=== PATIENT | male | born 1945 | race Caucasian/White ===

== ENCOUNTER → 2020-11-11 | Outpatient (CLI) | payer MEDICARE, OTHER | END | disposition home or self-care (01) | LOC: RADXRMAIN 07:26 | PROVIDERS: ATTEND Family Medicine | DX: Z53.9 Procedure and treatment not carried out, unspecified reason (principal) ==

== ENCOUNTER → 2020-11-11 | Outpatient (CLI) | payer MEDICARE, OTHER ==
--- NOTE | 2020-11-11 07:48 | XR ---
EXAMINATION TYPE: XR chest 2V DATE OF EXAM: 11/11/2020 COMPARISON: NONE HISTORY: Shortness of breath TECHNIQUE: Frontal and lateral views of the chest are obtained. FINDINGS: Underlying emphysematous changes though present on lateral view. There is no focal air spa ce opacity, pleural effusion, or pneumothorax seen. The cardiac silhouette size is within normal [place] its. Underlying scoliotic curvature. IMPRESSION: Chronic changes without acute pulmonary process.
--- NOTE | 2020-11-11 08:39 | US ---
EXAMINATION TYPE: US abdomen complete DATE OF EXAM: 11/11/2020 COMPARISON: NONE CLINICAL HISTORY: 75-year-old male E80.7 DISORDER OF BILIRUBIN. Abnormal labs, no symptoms TECHNIQUE: Multiple sonographic images of the abdomen are obtained. FINDINGS: EXAM MEASUREMENTS: Liver Length: 18.0 cm Gallbladder Wall: 0.2 cm CBD: 5.5 mm Spleen: 11.5 cm Right Kidney: 10.0 x 4.7 x 3.6 cm Left Kidney: 10.5 x 4.5 x 5.2 cm Pancreas: obscured by bowel gas Liver: Mildly enlarged at 18.0 cm. No focal lesion seen. Gallbladder: wnl Evidence for sonographic Fernandez's sign: no CBD: wnl Spleen: wnl Right Kidney: wnl Left Kidney: wnl Upper IVC: wnl Abd Aorta: mid and distal level obscured by bowel gas IMPRESSION: Mild hepatomegaly at 18.0 cm. No gallstones or biliary ductal dilatation. Suboptimal visualization of the pancreas.
== END | disposition home or self-care (01) ==
LOC: RADUSWWP 07:01
PROVIDERS: ATTEND Family Medicine
DX: R06.02 Shortness of breath (principal); E80.7 Disorder of bilirubin metabolism, unspecified
CPT/HCPCS: 71046; 76700

== ENCOUNTER → 2022-09-17 | Outpatient (CLI) | payer MEDICARE, OTHER ==
--- NOTE | 2022-09-17 14:33 | US ---
EXAMINATION TYPE: US groin RT DATE OF EXAM: 09/17/2022 COMPARISON: NONE CLINICAL INDICATION: Male, 77 years old with history of K40.90 INGUINAL HERNIA; Right testicular and groin pain Technique: Grayscale ultrasound imaging and area of patient's pain. FINDINGS: Right groin at patient's area of pain: appears appears within normal limits. No evidence for organizi ng fluid collection or mass. IMPRESSION: No organizing fluid collection or mass. If there remains concern consider CT hernia johnna col.
--- NOTE | 2022-09-17 14:37 | US ---
EXAMINATION TYPE: US scrotum with doppler. Grayscale and color Doppler Duplex imaging performed of lesvia johnson scrotum. DATE OF EXAM: 09/17/2022 COMPARISON: NONE CLINICAL INDICATION: Male, 77 years old with history of K40.90 INGUINAL HERNIA; Right testicular and groin pain EXAM MEASUREMENTS: TESTICLES: Right Testicle: 3.8 x 1.7 x 2.3 cm, heterogeneous few scattered microliths are present. Left Testicle: 3.4 x 1.8 x 2.5 cm, heterogeneous few scattered microliths are present. EPIDIDYMIS HEAD: Right Epididymis: 1.2 cm Left Epididymis: 1.1 cm Doppler performed to assess for testicular vascularity; good bilateral arterial color flow and wavefo ari are seen. Unable to obtain venous flow within bilateral testicles. Presence of hydroceles: right - 1.4cm, left - 1.9cm Presence of varicoceles: no IMPRESSION: 1. Heterogenous appearance to the testis relate for a component of epididymoorchitis. 2. Appropriate arterial flow to the bilateral testicles. Venous flow is suboptimal. 3. Trace bilateral hydroceles.
== END | disposition home or self-care (01) ==
LOC: RADUSWWP 13:32
PROVIDERS: ATTEND Family Medicine
DX: K40.90 Unilateral inguinal hernia, without obstruction or gangrene, not specified as recurrent (principal); N43.3 Hydrocele, unspecified; N45.3 Epididymo-orchitis
CPT/HCPCS: 76870; 93975

== ENCOUNTER 2023-02-01 15:29 | Inpatient (IN) | payer MEDICARE, OTHER ==
--- NOTE | 2023-02-01 15:48 | ED ---
Fall HPI - General Chief Complaint: Fall Stated Complaint: Fall Time Seen by Provider: 02/01/23 15:33 Source: patient, EMS Mode of arrival: EMS - History of Present Illness Initial Comments: Patient is 77-year-old man with history of Parkinson's disease who states that just prior to arrival he fell. The patient was on his porch, reaching to get a chair. He states that he lost his balance and fell landing on his left hip. He states that there is sharp, moderately severe pain and that he is not able to put any weight on his left leg now. Ambulance was called and he was brought here. He denies other injuries. Patient declined analgesia at initial history and physical MD Complaint: fall -: minutes(s) Fall From: standing When Fall Occurred: just prior to arrival Place Fall Occurred: home Loss of Consciousness: none Prolonged Down Time?: no Symptoms Prior to Fall: none Location - Extremities: Right: Thigh Severity: severe Quality: sharp Context: tripped/slipped Associated Symptoms: denies - Related Data Home Medications Medication Instructions Recorded Confirmed Aspirin EC [Ecotrin Low Dose] 81 mg PO HS 02/01/23 02/01/23 Carbidopa-Levodopa 25-100 mg 3 tab PO QID@07,11,15,19 02/01/23 02/01/23 [Sinemet 25-100 mg] Cholecalciferol [Vitamin D3 (125 125 mcg PO DAILY 02/01/23 02/01/23 Mcg = 5000 Iu)] Cyanocobalamin (Vitamin B-12) 1,000 mcg PO Q48H 02/01/23 02/01/23 [Vitamin B-12] Escitalopram Oxalate [Lexapro] 10 mg PO HS 02/01/23 02/01/23 Fluticasone/Umeclidin/Vilanter 1 puff INHALATION RT-DAILY 02/01/23 02/01/23 [Trelegy Ellipta 100-62.5-25] Melatonin [Melatonin ER] 10 mg PO HS 02/01/23 02/01/23 Tamsulosin [Flomax] 0.4 mg PO HS 02/01/23 02/01/23 buPROPion XL [Wellbutrin XL] 150 mg PO DAILY 02/01/23 02/01/23 Previous Rx's Medication Instructions Recorded Rivaroxaban [Xarelto] 10 mg PO DAILY #30 tab 02/02/23 Sennosides [Senokot] 2 tab PO DAILY PRN #60 tablet 02/02/23 HYDROcodone/APAP 7.5-325MG [[place] 1 - 2 tab PO Q6H PRN #32 tab 02/03/23 7.5-325] Gabapentin [Neurontin] 600 mg PO HS #8 cap 02/04/23 Allergies Allergy/AdvReac Type Severity Reaction Status Date / Time No Known Allergies Allergy Verified 02/01/23 18:14 Review of Systems ROS Statement: Those systems with pertinent positive or pertinent negative responses have been documented in the HPI. ROS Other: All systems not noted in ROS Statement are negative. Constitutional: Denies: fever, chills, weakness Eyes: Denies: vision change Respiratory: Denies: cough, dyspnea Cardiovascular: Denies: chest pain, palpitations, edema, syncope Gastrointestinal: Denies: abdominal pain, nausea, vomiting Genitourinary: Denies: dysuria, frequency Musculoskeletal: Reports: as per HPI, arthralgia. Denies: back pain Skin: Denies: rash Neurological: Denies: headache, weakness, numbness Past Medical History Smoking Status: Never smoker Past Alcohol Use History: None Reported Past Drug Use History: None Reported General Exam Limitations: no limitations, physical limitation General appearance: alert, in no apparent distress Head exam: Present: atraumatic, normocephalic Eye exam: Present: normal appearance. Absent: scleral icterus, conjunctival injection ENT exam: Present: normal oropharynx Neck exam: Present: normal inspection, full ROM Respiratory exam: Present: normal lung sounds bilaterally. Absent: respiratory distress, wheezes, rales, rhonchi, stridor, chest wall tenderness Cardiovascular Exam: Present: regular rate, normal rhythm, normal heart sounds. Absent: systolic murmur, diastolic murmur, rubs, gallop GI/Abdominal exam: Present: soft. Absent: distended, tenderness, guarding, re bound, rigid, mass Extremities exam: Present: normal inspection, tenderness, normal capillary refill, other (Tender left hip and decreased range of motion). Absent: full ROM, pedal edema, calf tenderness Back exam: Present: normal inspection. Absent: CVA tenderness (R), CVA tenderness (L) Neurological exam: Present: alert Skin exam: Present: warm, dry, intact, normal color. Absent: rash Course Vital Signs 02/01/23 02/01/23 02/01/23 15:34 15:58 18:58 Temperature 99 F Pulse Rate 86 74 Respiratory 18 18 18 Rate Blood Pressure 157/79 157/82 143/80 O2 Sat by Pulse 99 97 93 L Oximetry 02/01/23 19:45 Temperature 98.1 F Pulse Rate 75 Respiratory 18 Rate Blood Pressure 150/87 O2 Sat by Pulse 98 Oximetry Medical Decision Making - Medical Decision Making Patient is 77-year-old man having ground-level fall with left hip pain, found to have left femoral neck fracture. I patient states she has previously seen Dr. Tripathi, and requested see if he was available. I discussed case with the physician glass ribbon machine operator assistant who states that they would be able to perform surgery tomorrow. They request patient nothing by mouth after midnight. Discussed with the patient and family at bedside. The patient had pelvis and hip x-ray which in my interpretation shows acute femoral neck fracture The patient had chest x-ray which I interpreted as negative for acute bony injury, pneumothorax, infiltrate Was pt. sent in by a medical professional or institution (, PA, YOUTH CARE PROFESSIONAL, urgent care, hospital, or [facility]...) When possible be specific @ -[No] Did you speak to anyone other than the patient for history (EMS, parent, family, police, friend...)? What history was obtained from this source @ -[No] Did you review nursing and triage notes (agree or disagree)? Why? @ -[I reviewed and agree with nursing and triage notes] Were old charts reviewed (outside hosp., previous admission, EMS record, old EKG, old radiological studies, urgent care reports/EKG's, [facility] records)? Report findings @ -[No old charts were reviewed] Differential Diagnosis (chest pain, altered mental status, abdominal pain women, abdominal pain men, vaginal bleeding, weakness, fever, dyspnea, syncope, he adache, dizziness, GI bleed, back pain, seizure, CVA, palpatations, mental health, musculoskeletal)? @ -[Differential Musculoskeletal Muscular strain, contusion, ligament sprain, fracture, arthritis, septic arthritis, bursitis, cellulitis, muscle spasm, nerve compression, DVT, arterial occlusion, herpes zoster, electrolyte abnormality, tumor.... This is not meant to be in all inclusive list EKG interpreted by me (3pts min.). @ -[I interpreted As above] X-rays interpreted by me (1pt min.). @ -[I interpreted as above CT interpreted by me (1pt min.). @ -[None done] U/S interpreted by me (1pt. min.). @ -[None done] What testing was considered but not performed or refused? (CT, X-rays, U/S, labs)? Why? @ -[None] What meds were considered but not given or refused? Why? @ -[None] Did you discuss the management of the patient with other professionals (professionals i.e. , PA, YOUTH CARE PROFESSIONAL, lab, RT, psych nurse, criminal justice social worker, billet inspector, teacher, chief sales officer, case worker)? Give summary @ -[Case discussed with the orthopedic surgery service who will admit patient, treatment recommendations incorporated Was smoking cessation discussed for >3mins.? @ -[No] Was critical care preformed (if so, how long)? @ -[No] Were there social determinants of health that impacted care today? How? (Homelessness, low income, unemployed, alcoholism, drug addiction, transportation, low edu. Level, literacy, decrease access to med. care, intermediate, rehab)? @ -[No] Was there de-escalation of care discussed even if they declined (Discuss DNR or withdrawal of care, Hospice)? DNR status @ -[No] What co-morbidities impacted this encounter? (DM, HTN, Smoking, COPD, CAD, Cancer, CVA, ARF, Chemo, Hep., AIDS, mental health diagnosis, sleep apnea, morbid obesity)? @ -[Parkinson's disease Was patient admitted / discharged? Hospital course, mention meds given and route, prescriptions, significant lab abnormalities, going to OR and other pertinent info. @ -[hospital course] Undiagnosed new problem with uncertain prognosis? @ -[No] Drug Therapy requiring intensive monitoring for toxicity (Heparin, Nitro, Insulin, Cardizem)? @ -[No] Were any procedures done? @ -[No] Diagnosis/symptom? @ -[Acute closed femoral neck fracture Acute, or Chronic, or Acute on Chronic? @ -[Acute Uncomplicated (without systemic symptoms) or Complicated (systemic symptoms)? @ -[Uncomplicated Side effects of treatment? @ -[No] Exacerbation, Progression, or Severe Exacerbation? @ -[No] Poses a threat to life or bodily function? How? (Chest pain, USA, NM, pneumonia, PE, COPD, DKA, ARF, appy, cholecystitis, CVA, Diverticulitis, Homicidal, Suicidal, threat to staff... and all critical care pts) @ -[No] - Lab Data Result diagrams: 02/03/23 07:32 02/04/23 06:43 Lab Results 02/01/23 02/01/23 02/01/23 Range/Units 17:11 17:11 17:11 WBC 12.8 H (3.8-10.6) k/uL RBC 4.25 L (4.30-5.90) m/uL Hgb 12.7 L (13.0-17.5) gm/dL Hct 38.9 L (39.0-53.0) % MCV 91.5 (80.0-100.0) fL MCH 29.8 (25.0-35.0) pg MCHC 32.6 (31.0-37.0) g/dL RDW 13.5 (11.5-15.5) % Plt Count 255 (150-450) k/uL MPV 7.9 Neutrophils % 85 % Lymphocytes % 7 % Monocytes % 5 % Eosinophils % 2 % Basophils % 0 % Neutrophils # 10.9 H (1.3-7.7) k/uL Lymphocytes # 0.9 L (1.0-4.8) k/uL Monocytes # 0.6 (0-1.0) k/uL Eosinophils # 0.2 (0-0.7) k/uL Basophils # 0.0 (0-0.2) k/uL Sodium 137 (137-145) mmol/L Potassium 4.3 (3.5-5.1) mmol/L Chloride 102 (98-107) mmol/L Carbon Dioxide 27 (22-30) mmol/L Anion Gap 8 mmol/L BUN 19 (9-20) mg/dL Creatinine 1.13 (0.66-1.25) mg/dL Est GFR (CKD-EPI)AfAm 72 (>60 ml/min/1.73 sqM) Est GFR (CKD-EPI)NonAf 63 (>60 ml/min/1.73 sqM) Glucose 121 H (74-99) mg/dL Calcium 8.6 (8.4-10.2) mg/dL Urine Color Yellow Urine Appearance Clear (Clear) Urine pH 7.0 (5.0-8.0) Ur Specific [place] 1.020 (1.001-1.035) Urine Protein Trace (Negative) Urine Glucose (UA) Negative (Negative) Urine Ketones Negative (Negative) Urine Blood Negative (Negative) Urine Nitrite Negative (Negative) Urine Bilirubin Negative (Negative) Urine Urobilinogen <2.0 (<2.0) mg/dL Ur Leukocyte Esterase Negative (Negative) Urine RBC 2 (0-5) /hpf Urine WBC 1 (0-5) /hpf Hyaline Casts 8 H (0-2) /lpf Urine Mucus Rare H (None) /hpf Blood Type Confirm 02/01/23 Range/Units 17:11 WBC (3.8-10.6) k/uL RBC (4.30-5.90) m/uL Hgb (13.0-17.5) gm/dL Hct (39.0-53.0) % MCV (80.0-100.0) fL MCH (25.0-35.0) pg MCHC (31.0-37.0) g/dL RDW (11.5-15.5) % Plt Count (150-450) k/uL MPV Neutrophils % % Lymphocytes % % Monocytes % % Eosinophils % % Basophils % % Neutrophils # (1.3-7.7) k/uL Lymphocytes # (1.0-4.8) k/uL Monocytes # (0-1.0) k/uL Eosinophils # (0-0.7) k/uL Basophils # (0-0.2) k/uL Sodium (137-145) mmol/L Potassium (3.5-5.1) mmol/L Chloride (98-107) mmol/L Carbon Dioxide (22-30) mmol/L Anion Gap mmol/L BUN (9-20) mg/dL Creatinine (0.66-1.25) mg/dL Est GFR (CKD-EPI)AfAm (>60 ml/min/1.73 sqM) Est GFR (CKD-EPI)NonAf (>60 ml/min/1.73 sqM) Glucose (74-99) mg/dL Calcium (8.4-10.2) mg/dL Urine Color Urine Appearance (Clear) Urine pH (5.0-8.0) Ur Specific [place] (1.001-1.035) Urine Protein (Negative) Urine Glucose (UA) (Negative) Urine Ketones (Negative) Urine Blood (Negative) Urine Nitrite (Negative) Urine Bilirubin (Negative) Urine Urobilinogen (<2.0) mg/dL Ur Leukocyte Esterase (Negative) Urine RBC (0-5) /hpf Urine WBC (0-5) /hpf Hyaline Casts (0-2) /lpf Urine Mucus (None) /hpf Blood Type Confirm O Positive - EKG Data -: EKG Interpreted by Nv EKG shows normal: sinus rhythm, axis (Normal), intervals (Normal), QRS complexes (Normal), ST-T waves (Normal) Rate: normal (Rate 79 bpm) Interpretation: normal EKG Disposition Clinical Impression: Fall, Fracture of femoral neck, left, closed Disposition: HOME SELF-CARE Condition: Good Is patient prescribed a controlled substance at d/c from ED?: No
[2023-02-01] MEDS ORDERED: MORPHINE SULFATE 4 MG/ML SYRINGE IV STA (15:50)
--- NOTE | 2023-02-01 16:32 | XR ---
EXAMINATION TYPE: XR Hip LT and AP Pelvis DATE OF EXAM: 02/01/2023 4:20 PM CLINICAL INDICATION:Male, 77 years old with history of fall injury COMPARISON: None. TECHNIQUE: XR Hip LT and AP Pelvis; hip was examined in the frontal and lateral projections and a AP pelvis. FINDINGS/IMPRESSION: Acute left subcapital femoral neck fracture with varus deformity. The remaining osseous structures ap pear intact.
--- NOTE | 2023-02-01 16:33 | XR ---
EXAMINATION TYPE: XR chest 1V DATE OF EXAM: 02/01/2023 4:23 PM CLINICAL INDICATION:Male, 77 years old with history of surgical clearance; COMPARISON: Chest radiographs from 11/11/2020 TECHNIQUE: XR chest 1V Frontal view of the chest. FINDINGS: Lungs/Pleura: There is no evidence of pleural effusion, focal consolidation, or pneumothorax. Pulmonary vascularity: Unremarkable. Heart/mediastinum: Cardiomediastinal silhouette is unremarkable. Musculoskeletal: No acute osseous pathology. IMPRESSION: No acute cardiopulmonary disease/process.
[2023-02-01] MEDS ORDERED: SODIUM CHLORIDE 0.9% 1,000 ML IV STA (16:38)
[2023-02-01] MEDS ORDERED: ACETAMINOPHEN TAB 325 MG TAB PO PRN (17:13)
[2023-02-01] MEDS ORDERED: MAG HYDROX/AL HYDROX/SIMETH 30 ML CUP PO PRN (17:13)
[2023-02-01] MEDS ORDERED: NALOXONE 0.4 MG/ML 1 ML VIAL IV PRN (17:13)
[2023-02-01] MEDS ORDERED: ONDANSETRON 4 MG/2 ML VIAL IVP PRN (17:13)
[2023-02-01] MEDS: SODIUM CHLORIDE 0.9% 1,000 ML IV SCH (17:22)
[2023-02-01 17:27] LABS: Appearance,Urine Clear (Clear); Color,Urine Yellow; Protein,Urine Trace (Negative)
[2023-02-01 17:28] LABS: Bilirubin,Urine Negative (Negative); Blood,Urine Negative (Negative); Glucose,Urine (UA) Negative (Negative); Ketones,Urine Negative (Negative); Leukocyte Esterase,Urine Negative (Negative); Nitrite,Urine Negative (Negative); Urobilinogen,Urine <2.0 mg/dL (<2.0)
[2023-02-01 17:29] LABS: Basophils % (A) 0 %; Eosinophils # (A) 0.2 k/uL (0-0.7); Eosinophils % (A) 2 %; HCT 38.9 % (39.0-53.0); HGB 12.7 gm/dL (13.0-17.5); Hyaline Casts,Urine 8 /lpf (0-2); Lymphocytes # (A) 0.9 k/uL (1.0-4.8); Lymphocytes % (A) 7 %; MCH 29.8 pg (25.0-35.0); MCHC 32.6 g/dL (31.0-37.0); MCV 91.5 fL (80.0-100.0); Mean Platelet Volume 7.9; Monocytes # (A) 0.6 k/uL (0-1.0); Monocytes % (A) 5 %; Mucus,Urine Rare /hpf; Neutrophils # (A) 10.9 k/uL (1.3-7.7); Neutrophils % (A) 85 %; Platelet Count 255 k/uL (150-450); RBC 4.25 m/uL (4.30-5.90); RBC,Urine 2 /hpf (0-5); RDW 13.5 % (11.5-15.5); WBC 12.8 k/uL (3.8-10.6); WBC,Urine 1 /hpf (0-5)
[2023-02-01 18:22] LABS: African American GFR (CKD) 72 (>60 ml/min/1.73 sqM); Anion Gap 8 mmol/L; Blood Urea Nitrogen 19 mg/dL (9-20); Calcium 8.6 mg/dL (8.4-10.2); Carbon Dioxide 27 mmol/L (22-30); Chloride 102 mmol/L (98-107); Glucose 121 mg/dL (74-99); Non-African American GFR(CKD) 63 (>60 ml/min/1.73 sqM); Potassium 4.3 mmol/L (3.5-5.1); Sodium 137 mmol/L (137-145)
[2023-02-01] MEDS: MORPHINE SULFATE 4 MG/ML SYRINGE IV PRN ×2 (19:01→22:51)
[2023-02-01] MEDS: FAMOTIDINE 20 MG TAB PO SCH (22:53)
[2023-02-02] MEDS: MORPHINE SULFATE 4 MG/ML SYRINGE IV PRN ×3 (03:06→23:01)
[2023-02-02] MEDS: FAMOTIDINE 20 MG TAB PO SCH (08:49)
[2023-02-02] MEDS: SODIUM CHLORIDE 0.9% 1,000 ML IV SCH (09:32)
--- NOTE | 2023-02-02 09:57 | P.CONS ---
History of Present Illness - Reason for Consult Consult date: 02/02/23 parkinson's disease Requesting physician: Larry Tripathi - Chief Complaint hip pain - History of Present Illness Patient is a 77-year-old male with COPD, Parkinson's disease, and BPH who presented to the hospital after a fall. On arrival to the ER he underwent an e xtensive evaluation. Her initial vitals were within normal limits. Initial laboratory analysis included CBC, basic metabolic profile, and urinalysis was remarkable for white blood cell count 12.820 1112.7. Patient seen and examined at bedside. He reports that yesterday he was trying to sit down when he lost balance and fell. He denies any lightheadedness, dizziness, chest pain, or syncope. He does state that he intermittently gets dizzy but he was not during this episode. He has had for serious falls over the summer but is not having to use a walker. He does follow with a neurologist for his Parkinson's disease. He does have some shortness of breath with moderate exertion secondary to his COPD. He has not had any recent changes in his breathing pattern. He denies any chest pain over the last 30-90 days. He has no history of any cardiac etiologies. Vital signs reviewed General: nontoxic, no distress, appears at stated age Derm: warm, dry Eyes: EOMI, no lid lag, anicteric sclera, pupils equal round reactive to light ENT: Nose and ears atraumatic, no thrush, no pharyngeal erythema Cardiovascular: S1S2 reg, no murmur, positive posterior tibial pulse bilateral, no edema Lungs: clear to auscultation bilateral, no rhonchi, no rales, no wheeze, no accessory muscle use Abdominal: soft, nontender to palpation, no guarding, no appreciable organomegaly, normal bowel sounds Ext: no gross muscle atrophy, Left leg with internal rotation. Neuro: CN II-XII grossly intact, no gross focal neuro deficits, + resting tremor, hypophonia Psych: Alert, oriented, appropriate affect Assessment/Plan: 77-year-old male with left femoral neck fracture due to mechanical fall Per-op stratification Shah to activity score-7.5 METs NSQIP score for bipolar hemiarthroplasty -The risks were discussed with patient and family. They were provided with visualization of the scoring system. Average risk of serious complications 11.6, patient risks 9.4, average risk of pneumonia 2.8, patient risk 3.3, average risk of cardiac complications to, patient risk 1.6%, average risk of test 3.6%, patient's risk 2.6% - patient is medically optimized for surgery, no further testing indicated - recommend nebulizer be available post-op due the COPD. -Patient received morphine 4 mg every 4 hours IV when necessary pain. Monitor for sedation and respiratory depression. Parkinson's disease Mechanical Fall - Sinemet 25/103 tablets 4 times daily -Fall precautions -PT/OT BPH -Flomax 0.4 mg at night COPD without exacerbation -Resume home inhaler regiment -Ativan when necessary albuterol nebulizers 2.5 mg every 4 hours when necessary shortness of breath Imaging: Chest x-ray-no acute process X-ray-left subcapital femoral neck fracture with varus deformity EKG demonstrated normal sinus rhythm at a rate of 79, normal axis, normal intervals, no significant ST-T wave changes Data Review: As per HPI Thank you for allowing us to participate in the care of this pleasant patient. Do not hesitate to contact us with questions. Someone can be reached from the [facility] hospitalist group all hours of the day at [phone] or via [employer]. This dictation was prepared using [employer] voice recognition software. Though every attempt is made to correct errors during dictation some may still exist. Past Medical History Past Medical History: COPD Additional Past Medical History / Comment(s): parkinsons, neuropathy, BPH History of Any Multi-Drug Resistant Organisms: None Reported Past Surgical History: Appendectomy, Hernia Repair Additional Past Surgical History / Comment(s): R hand ganglion cyst removal (dupuytren's contracture) Past Anesthesia/Blood Transfusion Reactions: No Reported Reaction, Unable to Obtain Smoking Status: Never smoker Past Alcohol Use History: None Reported Past Drug Use History: None Reported Medications and Allergies Home Medications Medication Instructions Recorded Confirmed Type Aspirin EC [Ecotrin Low Dose] 81 mg PO HS 02/01/23 02/01/23 History Carbidopa-Levodopa 25-100 mg 3 tab PO QID@07,11,15,19 02/01/23 02/01/23 History [Sinemet 25-100] Cholecalciferol [Vitamin D3 (125 125 mcg PO DAILY 02/01/23 02/01/23 History Mcg = 5000 Iu)] Cyanocobalamin (Vitamin B-12) 1,000 mcg PO Q48H 02/01/23 02/01/23 History [Vitamin B-12] Escitalopram Oxalate [Lexapro] 10 mg PO HS 02/01/23 02/01/23 History Fluticasone/Umeclidin/Vilanter 1 puff INHALATION RT-DAILY 02/01/23 02/01/23 History [Trelegy Ellipta 100-62.5-25] Gabapentin [Neurontin] 600 mg PO HS 02/01/23 02/01/23 History Melatonin [Melatonin ER] 10 mg PO HS 02/01/23 02/01/23 History Sennosides [Senokot] 8.6 mg PO DAILY 02/01/23 02/01/23 History Tamsulosin [Flomax] 0.4 mg PO HS 02/01/23 02/01/23 History buPROPion XL [Wellbutrin XL] 150 mg PO DAILY 02/01/23 02/01/23 History Allergies Allergy/AdvReac Type Severity Reaction Status Date / Time No Known Allergies Allergy Verified 02/01/23 18:14 Physical Exam Osteopathic Statement: *. No significant issues noted on an osteopathic structural exam other than those noted in the History and Physical/Consult. Vitals: Vital Signs Temp Pulse Pulse Resp BP BP Pulse Ox 02/02/23 01:24 99.3 F 77 18 173/83 94 L 02/01/23 20:31 98.3 F 74 18 182/83 100 02/01/23 19:45 98.1 F 75 18 150/87 98 02/01/23 18:58 74 18 143/80 93 L 02/01/23 15:58 18 157/82 97 02/01/23 15:34 99 F 86 18 157/79 99 Intake and Output 02/01/23 02/02/23 02/02/23 22:59 06:59 14:59 Output Total 200 950 Balance -200 -950 Output: Urine 200 950 Other: Voiding Method Urinal External Catheter Weight 77.111 kg Results CBC & Chem 7: 02/01/23 17:11 02/01/23 17:11 Labs: Abnormal Lab Results - Last 24 Hours (Table) 02/01/23 02/01/23 02/01/23 Range/Units 17:11 17:11 17:11 WBC 12.8 H (3.8-10.6) k/uL RBC 4.25 L (4.30-5.90) m/uL Hgb 12.7 L (13.0-17.5) gm/dL Hct 38.9 L (39.0-53.0) % Neutrophils # 10.9 H (1.3-7.7) k/uL Lymphocytes # 0.9 L (1.0-4.8) k/uL Glucose 121 H (74-99) mg/dL Hyaline Casts 8 H (0-2) /lpf Urine Mucus Rare H (None) /hpf
[2023-02-02] MEDS ORDERED: DEXAMETHASONE SOD PHOSPHATE 4 MG/ML 1 ML VIAL IV ONE (10:51)
[2023-02-02] MEDS ORDERED: ONDANSETRON 4 MG/2 ML VIAL IVP ONE (10:51)
[2023-02-02] MEDS ORDERED: LACTATED RINGERS 1,000 ML IV SCH (11:00)
[2023-02-02] MEDS: IPRATROPIUM 0.5 MG/2.5 ML NEBU INHALATION SCH ×3 (11:38→22:23)
--- NOTE | 2023-02-02 12:21 | P.HPOR ---
History of Present Illness H&P Date: 02/02/23 This is a 77-year-old male who is admitted for left hip fracture after a fall at home. Patient's past medical history significant for Parkinson's disease, COPD and BPH. Patient is seen and evaluated at bedside today. X-rays in the emergency room reveal a left femoral neck fracture. Patient states that he lives at home with his and sometimes uses a walker due to Parkinson's. Patient states that the left hip is painful, but he denies any other areas of pain. Patient denies any fever/chills, numbness, weakness, tingling, abdominal pain, shortness of breath or chest pain. Review of Systems See HPI. Past Medical History Past Medical History: COPD Additional Past Medical History / Comment(s): parkinsons, neuropathy, BPH History of Any Multi-Drug Resistant Organisms: None Reported Past Surgical History: Appendectomy, Hernia Repair Additional Past Surgical History / Comment(s): R hand ganglion cyst removal (dupuytren's contracture) Past Anesthesia/Blood Transfusion Reactions: No Reported Reaction, Unable to Obtain Smoking Status: Never smoker Past Alcohol Use History: None Reported Past Drug Use History: None Reported Medications and Allergies Home Medications Medication Instructions Recorded Confirmed Type Aspirin EC [Ecotrin Low Dose] 81 mg PO HS 02/01/23 02/01/23 History Carbidopa-Levodopa 25-100 mg 3 tab PO QID@07,11,15,19 02/01/23 02/01/23 History [Sinemet 25-100] Cholecalciferol [Vitamin D3 (125 125 mcg PO DAILY 02/01/23 02/01/23 History Mcg = 5000 Iu)] Cyanocobalamin (Vitamin B-12) 1,000 mcg PO Q48H 02/01/23 02/01/23 History [Vitamin B-12] Escitalopram Oxalate [Lexapro] 10 mg PO HS 02/01/23 02/01/23 History Fluticasone/Umeclidin/Vilanter 1 puff INHALATION RT-DAILY 02/01/23 02/01/23 History [Trelegy Ellipta 100-62.5-25] Gabapentin [Neurontin] 600 mg PO HS 02/01/23 02/01/23 History Melatonin [Melatonin ER] 10 mg PO HS 02/01/23 02/01/23 History Sennosides [Senokot] 8.6 mg PO DAILY 02/01/23 02/01/23 History Tamsulosin [Flomax] 0.4 mg PO HS 02/01/23 02/01/23 History buPROPion XL [Wellbutrin XL] 150 mg PO DAILY 02/01/23 02/01/23 History Allergies Allergy/AdvReac Type Severity Reaction Status Date / Time No Known Allergies Allergy Verified 02/01/23 18:14 Physical Examination On exam patient is resting comfortably in bed in no acute distress. Patient is alert and oriented 3. Left lower extremity: Externally rotated. Skin is intact. There is tenderness to palpation over the left hip. Calf is soft and nontender to palpation. Sensation intact. Neurovascular status and circulatory status are intact. Head is normocephalic and atraumatic. No pain with neck motion. Exams of bilateral upper extremities and the right lower extremity are within normal limits. Results X-rays of the left hip and pelvis dated 02/01/2023 reveal a displaced left femoral neck fracture. - Labs Labs: Abnormal Lab Results - Last 24 Hours (Table) 02/01/23 02/01/23 02/01/23 Range/Units 17:11 17:11 17:11 WBC 12.8 H (3.8-10.6) k/uL RBC 4.25 L (4.30-5.90) m/uL Hgb 12.7 L (13.0-17.5) gm/dL Hct 38.9 L (39.0-53.0) % Neutrophils # 10.9 H (1.3-7.7) k/uL Lymphocytes # 0.9 L (1.0-4.8) k/uL Glucose 121 H (74-99) mg/dL Hyaline Casts 8 H (0-2) /lpf Urine Mucus Rare H (None) /hpf H & H 02/01/23 Range/Units 17:11 Hgb 12.7 L (13.0-17.5) gm/dL Hct 38.9 L (39.0-53.0) % Result Diagrams: 02/01/23 17:11 02/01/23 17:11 Assessment and Plan (1) Fall Current Visit: Yes Status: Acute Code(s): W19.XXXA - UNSPECIFIED FALL, INITIAL ENCOUNTER SNOMED Code(s): 1403151 (2) Fracture of femoral neck, left, closed Current Visit: Yes Status: Acute Code(s): S72.002A - FRACTURE OF UNSP PART OF NECK OF LEFT FEMUR, INIT SNOMED Code(s): 765749763 Plan: 1. Patient is to be NPO. 2. Continue pain control and bedrest. 3. Appreciate input from internal medicine. 4. Planning for left hip hemiarthroplasty with a direct anterior approach later today pending medical clearance and patient consent.
[2023-02-02] MEDS: CARBIDOPA-LEVODOPA 25-100 MG 1 EACH TAB PO SCH ×2 (12:36→17:48)
[2023-02-02 14:47] LABS: INR 0.9 (<1.2); Partial Thromboplastin Time 25.5 sec (22.0-30.0); Prothrombin Time 10.5 sec (10.0-12.5)
[2023-02-02] MEDS ORDERED: NALOXONE 0.4 MG/ML 1 ML VIAL IV PRN (16:19)
[2023-02-02] MEDS ORDERED: MAGNESIUM HYDROXIDE 2,400 MG/30 ML CUP PO PRN (16:19)
[2023-02-02] MEDS ORDERED: HYDROcodone/APAP 7.5-325MG 1 EACH TAB PO PRN (16:24)
[2023-02-02] MEDS ORDERED: PROPOFOL 10 MG/ML 20 ML VIAL IV ONE (18:06)
[2023-02-02] MEDS ORDERED: HYDROmorphone (PF) 1 MG/ML ONE (18:06)
[2023-02-02] MEDS ORDERED: NEOSTIGMINE 1 MG/ML 10 ML VIAL ONE (18:06)
[2023-02-02] MEDS ORDERED: PHENYLEPHRINE-0.9% NACL SYG 1,000 MCG/10 ML SYRINGE ONE (18:06)
[2023-02-02] MEDS ORDERED: GLYCOPYRROLATE 0.2 MG/ML 2 ML VIAL ONE (18:06)
[2023-02-02] MEDS ORDERED: LIDOCAINE 1% INJ 10MG/ML (20 ML MDV) ONE (18:06)
[2023-02-02] MEDS ORDERED: DEXAMETHASONE SOD PHOSPHATE 4 MG/ML 1 ML VIAL ONE (18:06)
[2023-02-02] MEDS ORDERED: fentaNYL (PF) 50 MCG/ML 2 ML AMP ONE (18:06)
[2023-02-02] MEDS ORDERED: SUCCINYLCHOLINE CHLORIDE 200 MG/10 ML VIAL IV ONE (18:06)
[2023-02-02] MEDS ORDERED: ONDANSETRON 4 MG/2 ML VIAL ONE (18:06)
[2023-02-02] MEDS ORDERED: ROCURONIUM 10 MG/ML (5 ML VIAL) IV ONE (18:06)
[2023-02-02] MEDS ORDERED: SODIUM CHLORIDE 0.9% 50 ML with ceFAZolin 2,000 MG IV ONE ×2 (18:09)
[2023-02-02] MEDS ORDERED: SODIUM CHLORIDE 0.9% 1,000 ML IV ONE (18:09)
[2023-02-02] MEDS ORDERED: SODIUM CHLORIDE 0.9% 100 ML BAG ONE (18:15)
[2023-02-02] MEDS ORDERED: ceFAZolin 1,000 MG VIAL ONE (18:15)
[2023-02-02] MEDS ORDERED: ROPIVACAINE 5 MG/ML 30 ML VIAL MISCELLANE ONE ×2 (18:33→18:56)
[2023-02-02] MEDS ORDERED: LACTATED RINGERS 1,000 ML IV ONE (19:08)
--- NOTE | 2023-02-02 19:14 | P.OP ---
Date of Procedure: 02/02/23 Preoperative Diagnosis: Subcapital fracture left hip Postoperative Diagnosis: Subcapital fracture left hip Procedure(s) Performed: Left hip hemiarthroplasty with a direct anterior approach Implants: Nino and nephew Polarstem size 4 standard with a collar Nino [employer] Nephew tandem unipolar, 53 mm Nino [employer] Nephew tandem unipolar 12/14 taper sleeve, +0 mm All components were press-fit. Anesthesia: GETA Surgeon: Larry Tripathi Estimated Blood Loss (ml): 250 Pathology: none sent Condition: stable Disposition: PACU Indications for Procedure: This is a 77-year-old gentleman that sustained a ground-level fall at home. X- rays demonstrated a subcapital fracture of his left hip. After discussing the surgical nonsurgical treatment options with her at length he wishes to proceed with a left hip hemiarthroplasty. Informed consent was obtained. Operative Findings: The operative findings are consistent with subcapital fracture of the left hip Description of Procedure: The patient was seen and evaluated in the preoperative area and the consent was reviewed. The operative site was marked with a skin marker. The patient verified the procedure and operative site. A CATHERINE block was placed by anesthesia in the preoperative area. The patient was then brought to the operating room and given preoperative antibiotics intravenously. 1 g of Tranexamic acid was also given intravenously. A spinal anesthetic was administered by the anesthesia department. The patient was then placed on the Wolcott table with the bony prominences well-padded. The hip area was then prepped with a ChloraPrep solution and draped in the usual sterile fashion. A universal timeout was then performed, which confirmed the patient's name, surgical site, ALLERGIES, and procedure being performed on the consent. Next the incision site was located at 1 cm distal and 4 cm lateral to the anterior superior iliac spine. The skin and subcutaneous tissues were sharply incised. Incision was carefully dissected down to the fascia overlying the tensor fascia yesi muscle. This fascia was then incised in line with the muscle fibers. Care was taken to stay laterally in order to avoid injuring the lateral femoral cuta neous nerve. Next, using blunt finger dissection, the tensor fascia yesi muscle was dissected off its investing fascia. The muscle was then carefully retracted laterally with a cobra retractor over the lateral neck of the femur. Next, the circumflex vessels were identified and cauterized using the Aquamantis device. The anterior hip capsule was then exposed. The capsule was then opened and an inverted T fashion. The fracture hematoma was evacuated. The retractors were then placed intracapsularly. The retractors were maintained intracapsular throughout the procedure. The proximal femur was then visualized. A small amount of traction was placed on the leg. The femoral neck was then osteotomized at the appropriate level above the lesser trochanter. A small wedge of bone was then removed from the remaining femoral head. Next, using a corkscrew the femoral head was removed from the acetabulum. The femoral head was then measured. Attention was then directed to the femur. With the aid of the Wolcott table, the femur was externally rotated to approximately 130, extended, and adducted under the opposite leg. A side hook was then placed under the proximal femur, and the side hook elevator was used to elevate the proximal femur while releasing the capsule. Retractors were then placed. A capsular release was performed, as well as a release of the conjoined tendon, which afforded excellent visualization of the proximal femur. Next, a box osteotome was used to lateralize the proximal femur. A orchard hand was then used to locate the femoral canal. Sequential broaching was then performed with appropriate size which afforded excellent fixation in the proximal femur. A trial was then placed with appropriate head and neck, and the hip was gently reduced with the aid of the Wolcott table. Fluoroscopy was then used to check position of the components, as well as to evaluate the leg lengths and offset. The leg lengths and offset were measured as closely as possible to ensure stability of the hip. The hip was then gently dislocated and the trials were then removed. Final implants were then impacted and the hip was again reduced. Final fluoroscopic x-rays confirmed that the components were in anatomic position. The leg lengths and offset were measured and were found to coincide with the trial measurements. The hip was also taken through range of motion, and found to be stable. The hip was then copiously irrigated with antibiotic solution with pulsatile lavage. The hip was then irrigated with Irrisept solution. The soft tissues were then injected with a ropivacaine solution. A second dose of 1 g of Tranexamic acid was also given intravenously. The fascia was then closed with 2-0 strata fix suture. The subcutaneous tissue was closed with 3-0 Vicryl. The subcuticular tissue was closed with 3-0 strata fix suture. The skin was then closed with Exofin skin glue. After the glue and dried, and Optifoam silver impregnated dressing was applied. The patient was then transferred to the recovery room in stable condition.
--- NOTE | 2023-02-02 19:17 | XR ---
EXAMINATION TYPE: XR Hip Limited LT, FL guidance operating room DATE OF EXAM: 02/02/2023 CLINICAL HISTORY: Left hip fracture. TECHNIQUE: Fluoroscopy. Intraoperative limited views left hip. COMPARISON: Pelvic and left hip x-ray from one day earlier. FINDINGS: Fluoroscopic guidance was provided during left hip replacement procedure performed by Dr. Tripathi. A total of 20.3 seconds of fluoroscopic time was utilized during the procedure and 3 spot images was acquired. Total dose area product (DAP) in uGy*m?, mGy*cm? (or similar: 0.7014. Intraoperative images acquired show metallic hardware from total left hip arthroplasty satisfactory p osition on frontal projection. IMPRESSION: As Above.
[2023-02-02] MEDS ORDERED: HYDROmorphone 0.5 MG/0.5 ML SYRINGE IVP ONE ×2 (19:57→20:02)
--- NOTE | 2023-02-02 20:07 | XR ---
EXAMINATION TYPE: XR Hip Limited LT DATE OF EXAM: 02/02/2023 CLINICAL HISTORY: Left hip fracture. TECHNIQUE: Single AP portable view of left hip is obtained immediately postoperatively. COMPARISON: Pelvic and left hip x-ray one day earlier FINDINGS: Metallic hardware from left hip arthroplasty is seen and appears satisfactory in alignment and position. There is evidence of recent surgery with subcutaneous gas noted laterally. Moderate to severe rectal fecal prominence redemonstrated. IMPRESSION: Metallic hardware from left hip arthroplasty is satisfactory in position.
[2023-02-02] MEDS: SYMBICORT 80-4.5 MCG INHALER INHALATION SCH (22:23)
[2023-02-02] MEDS ORDERED: QUEtiapine 25 MG TAB PO STA (23:57)
[2023-02-03] MEDS: CARBIDOPA-LEVODOPA 25-100 MG 1 EACH TAB PO SCH ×5 (00:10→18:58)
[2023-02-03] MEDS: ASPIRIN 81 MG PO SCH ×2 (00:10→20:48)
[2023-02-03] MEDS: FAMOTIDINE 20 MG TAB PO SCH ×3 (00:11→20:48)
[2023-02-03] MEDS: MELATONIN 5 MG TABLET PO SCH ×2 (00:11→20:48)
[2023-02-03] MEDS: ESCITALOPRAM 10 MG TAB PO SCH ×2 (00:11→21:56)
[2023-02-03] MEDS: SENNOSIDES-DOCUSATE SODIUM 1 EACH TAB PO SCH ×2 (00:11→20:48)
[2023-02-03] MEDS: TAMSULOSIN 0.4 MG CAP.ER.24H PO SCH ×2 (00:11→20:48)
[2023-02-03] MEDS: GABAPENTIN 300 MG CAP PO SCH ×2 (00:11→20:48)
[2023-02-03] MEDS ORDERED: HYDROmorphone 0.5 MG/0.5 ML SYRINGE IVP PRN (07:00)
[2023-02-03] MEDS: SODIUM CHLORIDE 0.9% 1,000 ML IV SCH ×3 (07:40→09:22)
[2023-02-03] MEDS: SYMBICORT 80-4.5 MCG INHALER INHALATION SCH ×2 (07:50→21:57)
[2023-02-03] MEDS: IPRATROPIUM 0.5 MG/2.5 ML NEBU INHALATION SCH ×4 (07:50→21:57)
[2023-02-03] MEDS ORDERED: CYANOCOBALAMIN 500 MCG TAB PO SCH (09:00)
[2023-02-03] MEDS: CHOLECALCIFEROL 125 MCG (5000 IU) TABLET PO SCH (09:24)
[2023-02-03] MEDS: buPROPion XL 150 MG TAB.ER.24H PO SCH (09:24)
[2023-02-03] MEDS: RIVAROXABAN 10 MG TAB PO SCH (09:24)
[2023-02-03 10:59] LABS: BUN/Creat Ratio 13.85 Ratio (12.00-20.00); Calcium 8.4 mg/dL (8.7-10.3); Carbon Dioxide 25.7 mmol/L (21.6-31.8); Chloride 102 mmol/L (96-109); Glucose 111 mg/dL (70-110); Potassium 4.3 mmol/L (3.5-5.5); Sodium 137 mmol/L (135-145)
[2023-02-03 11:03] LABS: Basophils # (A) 0.04 X 10*3/uL (0.00-0.10); Basophils % (A) 0.3 %; Eosinophils # (A) 0 X 10*3/uL (0.04-0.35); Eosinophils % (A) 0 %; HCT 33.7 % (39.6-50.0); HGB 10.9 d/dL (13.0-17.0); Lymphocytes # (A) 0.75 X 10*3/uL (0.90-5.00); Lymphocytes % (A) 4.9 %; MCH 29.5 pg (27.0-32.0); MCHC 32.3 d/dL (32.0-37.0); MCV 91.1 FL (80.0-97.0); Mean Platelet Volume 10.3 FL (9.5-12.2); Monocytes # (A) 1.43 X 10*3/uL (0.20-1.00); Monocytes % (A) 9.4 %; NRBC Per 100 WBC 0 X 10*3/uL (0.00-0.01); Neutrophils # (A) 12.96 X 10*3/uL (1.80-7.70); Neutrophils % (A) 84.9 %; Platelet Count 263 X 10*3/uL (140-440); WBC 15.26 X 10*3/uL (4.50-10.00)
[2023-02-03] MEDS: ACETAMINOPHEN TAB 325 MG TAB PO SCH ×2 (11:25→16:47)
--- NOTE | 2023-02-03 14:18 | P.PN ---
Subjective Progress Note Date: 02/03/23 This is a 77-year-old male who is status post left hip hemiarthroplasty with direct anterior approach. This is postoperative day #1 and patient is seen and evaluated at bedside today. Patient states that he is sore, but was able to work with physical therapy today. Patient denies any fever/chills, numbness, weakness, tingling, abdominal pain, shortness of breath or chest pain. Objective - Vital Signs Vital signs: Vital Signs Temp 99.0 F 02/03/23 07:01 Pulse 84 02/03/23 11:42 Resp 17 02/03/23 07:01 BP 166/83 02/03/23 07:01 Pulse Ox 96 02/03/23 07:01 FiO2 Intake & Output 02/02/23 02/03/23 02/03/23 18:59 06:59 18:59 Intake Total 450 50 Output Total 1050 300 Balance -600 -250 Weight 77.111 kg Intake: IV 450 50 Output: Urine 800 300 Estimated Blood Loss 250 Other: Voiding Method Urinal Urinal Indwelling Catheter # Voids 4 - Exam Vital signs are stable. Patient is in no acute distress and is alert and oriented 3. Calf is soft and nontender to palpation. Dressing is clean, dry, and intact. Patient has full foot and ankle motion without pain or difficulty. Sensation intact. Neurovascular status and circulatory status are intact. - Labs CBC & Chem 7: 02/03/23 07:32 02/03/23 07:32 Labs: Abnormal Lab Results - Last 24 Hours (Table) 02/03/23 02/03/23 Range/Units 07:32 07:32 WBC 15.26 H (4.50-10.00) X 10*3/uL RBC 3.70 L (4.40-5.60) X 10*6/uL Hgb 10.9 L (13.0-17.0) d/dL Hct 33.7 L (39.6-50.0) % Neutrophils # 12.96 H (1.80-7.70) X 10*3/uL Lymphocytes # 0.75 L (0.90-5.00) X 10*3/uL Monocytes # 1.43 H (0.20-1.00) X 10*3/uL Eosinophils # 0 L (0.04-0.35) X 10*3/uL Est GFR (CKD-EPI) 57 L (>=60) Glucose 111 H (70-110) mg/dL Calcium 8.4 L (8.7-10.3) mg/dL Assessment and Plan (1) Fall Current Visit: Yes Status: Acute Code(s): W19.XXXA - UNSPECIFIED FALL, INITIAL ENCOUNTER SNOMED Code(s): 2719875 (2) Fracture of femoral neck, left, closed Current Visit: Yes Status: Acute Code(s): S72.002A - FRACTURE OF UNSP PART OF NECK OF LEFT FEMUR, INIT SNOMED Code(s): 100329086 (3) S/P hip hemiarthroplasty Current Visit: Yes Status: Acute Code(s): Z96.649 - PRESENCE OF UNSPECIFIED ARTIFICIAL HIP JOINT SNOMED Code(s): 631053083 Plan: Continue routine postop care and pain control. Continue anticoagulation with Xarelto. Weightbearing as tolerated with a walker. Daily dressing changes. Appreciate input from internal medicine. Anticipate discharge to ECF in the next 24-48 hours.
--- NOTE | 2023-02-03 18:56 | P.PN ---
Subjective Progress Note Date: 02/03/23 (delayed charting see at approx 0930) Patient is a 77-year-old male with COPD, Parkinson's disease, and BPH who presented to the hospital after a fall. On arrival to the ER he underwent an extensive evaluation. His initial vitals were within normal limits. Initial laboratory analysis included CBC, basic metabolic profile, and urinalysis was remarkable for white blood cell count 12.8 and glucose of 121. X-ray revealed left femoral neck fracture. He underwent left direct antrior hemiarthroplasty. Patient seen and examined at bedside. He is pleasantly confused. He denies pain, nausea, vomitng. He is feeling a bit light headed but that is typical for him. Vital signs reviewed General: nontoxic, no distress, appears at stated age Cardiovascular: S1S2 reg, no murmur, positive posterior tibial pulse bilateral Lungs: Decreased bs bilateral, no rhonchi, no rales, no accessory muscle use Abdominal: soft, nontender to palpation, no guarding, no appreciable organomegaly Ext: no gross muscle atrophy, no edema b/l lower extremities, no contractures Neuro: CN II-XI grossly intact, no focal neuro deficits, + tremors b/l hands Psych: Alert, oriented to self, place and year but not month, appropriate affect Assessment/Plan: 77-year-old male with left femoral neck fracture due to mechanical fall s/p left direct anterior hemiarthroplasty Pot-op pain Acute metabolic encephalopathy - start tylenol 650 mg q 6 hours scheduled for pain, as patient has ask for minimal pain medication post-op and is having slight confusion - norco 7.5 1-2 q 6 hours depending on pain scale -Patient received morphine 4 mg every 4 hours IV when necessary pain. Monitor for sedation and respiratory depression. - xarelto 10 mg daily Parkinson's disease Mechanical Fall - Sinemet 25/100 3 tablets 4 times daily -Fall precautions -PT/OT BPH -Flomax 0.4 mg at night COPD without exacerbation -Symbicort 80/4.5 mcg 2 puffs twice daily, atrovent 0.5 mg inh QID, when necessary albuterol nebulizers 2.5 mg every 4 hours when necessary shortness of breath Data Review: Labs reviewed include CBC and BMP, remarkable for Cr 1.3, Glucose 111, WBC 15.26, and HgB 10.9 Thank you for allowing us to participate in the care of this pleasant patient. Do not hesitate to contact us with questions. Someone can be reached from the [facility] hospitalist group all hours of the day at [phone] or via perfect serve. This dictation was prepared using [employer] voice recognition software. Though every attempt is made to correct errors during dictation some may still exist. Objective - Vital Signs Vital signs: Vital Signs Temp 98.2 F 02/03/23 14:16 Pulse 82 02/03/23 16:00 Resp 18 02/03/23 14:16 BP 100/62 02/03/23 14:16 Pulse Ox 99 02/03/23 14:16 FiO2 Intake & Output 02/02/23 02/03/23 02/03/23 18:59 06:59 18:59 Intake Total 450 50 50 Output Total 1050 300 Balance -600 -250 50 Weight 77.111 kg Intake: IV 450 50 Intake, IV Titration 50 Amount ceFAZolin 2 gm In Sodium 50 Chloride 0.9% 50 ml @ 100 mls/hr IVPB Q8HR [facility] Rx# :[id number] Output: Urine 800 300 Estimated Blood Loss 250 Other: Voiding Method Urinal Urinal Indwelling Catheter Indwelling Catheter # Voids 4 - Labs CBC & Chem 7: 02/03/23 07:32 02/03/23 07:32 Labs: Abnormal Lab Results - Last 24 Hours (Table) 02/03/23 02/03/23 Range/Units 07:32 07:32 WBC 15.26 H (4.50-10.00) X 10*3/uL RBC 3.70 L (4.40-5.60) X 10*6/uL Hgb 10.9 L (13.0-17.0) d/dL Hct 33.7 L (39.6-50.0) % Neutrophils # 12.96 H (1.80-7.70) X 10*3/uL Lymphocytes # 0.75 L (0.90-5.00) X 10*3/uL Monocytes # 1.43 H (0.20-1.00) X 10*3/uL Eosinophils # 0 L (0.04-0.35) X 10*3/uL Est GFR (CKD-EPI) 57 L (>=60) Glucose 111 H (70-110) mg/dL Calcium 8.4 L (8.7-10.3) mg/dL
[2023-02-04] MEDS: ACETAMINOPHEN TAB 325 MG TAB PO SCH ×3 (01:28→11:20)
[2023-02-04] MEDS: CARBIDOPA-LEVODOPA 25-100 MG 1 EACH TAB PO SCH ×3 (06:48→13:58)
[2023-02-04 07:40] VITALS: BP 148/78; RESP 17; TEMP 98.4
[2023-02-04] MEDS: CHOLECALCIFEROL 125 MCG (5000 IU) TABLET PO SCH (08:31)
[2023-02-04] MEDS: FAMOTIDINE 20 MG TAB PO SCH (08:31)
[2023-02-04] MEDS: RIVAROXABAN 10 MG TAB PO SCH (08:31)
[2023-02-04] MEDS: buPROPion XL 150 MG TAB.ER.24H PO SCH (08:32)
[2023-02-04] MEDS: HYDROcodone/APAP 7.5-325MG 1 EACH TAB PO PRN ×2 (08:41→13:59)
[2023-02-04] MEDS: IPRATROPIUM 0.5 MG/2.5 ML NEBU INHALATION SCH ×2 (08:47→11:35)
[2023-02-04] MEDS: SYMBICORT 80-4.5 MCG INHALER INHALATION SCH (08:47)
--- NOTE | 2023-02-04 08:49 | P.DS ---
Providers Date of admission: 02/01/23 17:14 Expected date of discharge: 02/04/23 Attending physician: Larry Tripathi Consults: 02/01/23 17:26 Consult Physician Routine Consulting Provider: Amber Pan Consult Reason/Comments: surgical clearance Do you want consulting provider notified?: Yes Primary care physician: Kike Nunes - Discharge Diagnosis(es) (1) Fracture of femoral neck, left, closed Current Visit: Yes Status: Acute (2) S/P hip hemiarthroplasty Current Visit: Yes Status: Acute Hospital Course: This is a 77-year-old male who presented on 02/01/2023 after falling and sustaining injury to the left hip. On exam and x-ray in the emergency department she was found to have a hip fracture. The pt is admitted to our service for surgical intervention and care. The patient is taken to surgery for hemiarthroplasty of the left hip with direct anterior approach. The procedure is performed without complication or sequelae. The patient is doing well postoperatively. The distal aspect of this incision did open up slightly and very superficially. The areas Steri-Stripped and a new dressing is applied. Vital signs are stable on postop day #3. There are no new complaints or concerns. The patient is discharged to inpatient rehab pending medical clearance today. Please refer to the med rec for accurate list of medications. Patient Condition at Discharge: Good Plan - Discharge Summary Discharge Rx Participant: Yes New Discharge Prescriptions: New Sennosides [Senokot] 2 tab PO DAILY PRN #60 tablet PRN Reason: Constipation Rivaroxaban [Xarelto] 10 mg PO DAILY #30 tab HYDROcodone/APAP 7.5-325MG [[place] 7.5-325] 1 - 2 tab PO Q6H PRN #32 tab PRN Reason: Pain No Action Cholecalciferol [Vitamin D3 (125 Mcg = 5000 Iu)] 125 mcg PO DAILY Aspirin EC [Ecotrin Low Dose] 81 mg PO HS Tamsulosin [Flomax] 0.4 mg PO HS Fluticasone/Umeclidin/Vilanter [Trelegy Ellipta 100-62.5-25] 1 puff INHALATION RT-DAILY Melatonin [Melatonin ER] 10 mg PO HS Escitalopram Oxalate [Lexapro] 10 mg PO HS Cyanocobalamin (Vitamin B-12) [Vitamin B-12] 1,000 mcg PO Q48H Gabapentin [Neurontin] 600 mg PO HS Carbidopa-Levodopa 25-100 mg [Sinemet 25-100] 3 tab PO QID@,,, buPROPion XL [Wellbutrin XL] 150 mg PO DAILY Sennosides [Senokot] 8.6 mg PO DAILY Discharge Medication List Aspirin EC [Ecotrin Low Dose] 81 mg PO HS 02/01/23 [History] Carbidopa-Levodopa 25-100 mg [Sinemet 25-100] 3 tab PO QID@,,,02/01/23 [History] Cholecalciferol [Vitamin D3 (125 Mcg = 5000 Iu)] 125 mcg PO DAILY 02/01/23 [History] Cyanocobalamin (Vitamin B-12) [Vitamin B-12] 1,000 mcg PO Q48H 02/01/23 [History] Escitalopram Oxalate [Lexapro] 10 mg PO HS 02/01/23 [History] Fluticasone/Umeclidin/Vilanter [Trelegy Ellipta 100-62.5-25] 1 puff INHALATION RT-DAILY 02/01/23 [History] Gabapentin [Neurontin] 600 mg PO HS 02/01/23 [History] Melatonin [Melatonin ER] 10 mg PO HS 02/01/23 [History] Sennosides [Senokot] 8.6 mg PO DAILY 02/01/23 [History] Tamsulosin [Flomax] 0.4 mg PO HS 02/01/23 [History] buPROPion XL [Wellbutrin XL] 150 mg PO DAILY 02/01/23 [History] Rivaroxaban [Xarelto] 10 mg PO DAILY #30 tab 02/02/23 [Rx] Sennosides [Senokot] 2 tab PO DAILY PRN #60 tablet 02/02/23 [Rx] HYDROcodone/APAP 7.5-325MG [[place] 7.5-325] 1 - 2 tab PO Q6H PRN #32 tab 02/03/23 [Rx] Follow up Appointment(s)/Referral(s): Kike Nunes MD [Primary Care Provider] - 1-2 days Larry Tripathi DO [Doctor of Osteopathic Medicine] - 2 Weeks Activity/Diet/Wound Care/Special Instructions: Weightbearing as tolerated with walker Leave dressing intact. Dressing may be removed by home care nurse in 7 days. May shower with dressing on. Please take Xarelto for 30 days to prevent blood clots. Please wear compression stockings during the day until follow-up appointment to help prevent blood clots. May remove at night. Follow-up with [facility] in 2 weeks, please call with any questions or concerns [phone] Discharge Disposition: TRANSFER TO SNF/ECF
[2023-02-04 09:06] VITALS: PULSE 76
[2023-02-04 11:27] LABS: BUN/Creat Ratio 16.46 Ratio (12.00-20.00); Blood Urea Nitrogen 21.4 mg/dL (9.0-27.0); Chloride 101 mmol/L (96-109); Glucose 113 mg/dL (70-110); Potassium 4.2 mmol/L (3.5-5.5); Sodium 134 mmol/L (135-145)
[2023-02-04 11:28] LABS: Carbon Dioxide 32.3 mmol/L (21.6-31.8)
--- NOTE | 2023-02-04 20:12 | P.PN ---
Subjective Progress Note Date: 02/04/23 (delayed charting seen at 1130) Patient is a 77-year-old male with COPD, Parkinson's disease, and BPH who presented to the hospital after a fall. On arrival to the ER he underwent an extensive evaluation. His initial vitals were within normal limits. Initial laboratory analysis included CBC, basic metabolic profile, and urinalysis was remarkable for white blood cell count 12.8 and glucose of 121. X-ray revealed left femoral neck fracture. He underwent left direct antrior hemiarthroplasty. Patient seen and examined at bedside. present at bedside. He is still having some confusion. Pain is controlled. No chest pain, nausea, or shortness of breath. Vital signs reviewed General: nontoxic, no distress, appears at stated age Cardiovascular: S1S2 reg, no murmur, positive posterior tibial pulse bilateral Lungs: Decreased bs bilateral, no rhonchi, no rales, no accessory muscle use Abdominal: soft, nontender to palpation, no guarding, no appreciable organomegaly Ext: no gross muscle atrophy, no edema b/l lower extremities, no contractures Neuro: CN II-XI grossly intact, no focal neuro deficits, masked facies Psych: Alert, oriented to self, place and year but not month, appropriate affect Assessment/Plan: 77-year-old male with left femoral neck fracture due to mechanical fall s/p left direct anterior hemiarthroplasty Post-op pain Acute metabolic encephalopathy - Tylenol 650 mg q 6 hours scheduled for pain, as patient has ask for minimal pain medication post-op and is having slight confusion - norco 7.5 1-2 q 6 hours depending on pain scale -Patient received morphine 4 mg every 4 hours IV when necessary pain. Monitor for sedation and respiratory depression. - xarelto 10 mg daily - safe and supportive environment Parkinson's disease Mechanical Fall - Sinemet 25/100 3 tablets 4 times daily -Fall precautions -PT/OT BPH -Flomax 0.4 mg at night COPD without exacerbation -Symbicort 80/4.5 mcg 2 puffs twice daily, atrovent 0.5 mg inh QID, when necessary albuterol nebulizers 2.5 mg every 4 hours when necessary shortness of breath Patient medically optimized for discharge at the discretion of orthopedic surgery. Home medication reconciliation addressed. Prescription left for gabapentin as patient is being discharged to [facility] facility. Data Review: Laboratory review for today is a BMP which shows sodium of 134 and creatinine stable at 1.3 Thank you for allowing us to participate in the care of this pleasant patient. Do not hesitate to contact us with questions. Someone can be reached from the [facility] hospitalist group all hours of the day at [phone] or via perfect serve. This dictation was prepared using [employer] voice recognition software. Though every attempt is made to correct errors during dictation some may still exist. Objective - Vital Signs Vital signs: Vital Signs Temp 98.4 F 02/04/23 07:36 Pulse 76 02/04/23 11:47 Resp 17 02/04/23 07:36 BP 148/78 02/04/23 07:36 Pulse Ox 95 02/04/23 07:36 FiO2 Intake & Output 02/04/23 02/04/23 02/05/23 06:59 18:59 06:59 Output Total 300 Balance -300 Output: Urine 300 Other: Voiding Method Toilet Urinal # Voids 10 - Labs CBC & Chem 7: 02/03/23 07:32 02/04/23 06:43 Labs: Abnormal Lab Results - Last 24 Hours (Table) 02/04/23 Range/Units 06:43 Sodium 134 L (135-145) mmol/L Carbon Dioxide 32.3 H (21.6-31.8) mmol/L Anion Gap 0.70 L (4.00-12.00) mmol/L Est GFR (CKD-EPI) 57 L (>=60) Glucose 113 H (70-110) mg/dL Calcium 8.0 L (8.7-10.3) mg/dL
== END 2023-02-04 14:31 | DRG 521 ==
LOC: EC 15:29 → 4SSUR 17:14
PROVIDERS: ADMIT Orthopaedic Surgery; ATTEND Orthopaedic Surgery
PROC: 0SRS0JZ Replacement of Left Hip Joint, Femoral Surface with Synthetic Substitute, Open Approach (ICD-10-PCS; principal; 2023-02-02 09:15)
DX: S72.012A Unspecified intracapsular fracture of left femur, initial encounter for closed fracture (principal); G93.41 Metabolic encephalopathy; J44.9 Chronic obstructive pulmonary disease, unspecified; N40.0 Benign prostatic hyperplasia without lower urinary tract symptoms; W01.0XXA Fall on same level from slipping, tripping and stumbling without subsequent striking against object, initial encounter; G20.A1 Parkinson's disease without dyskinesia, without mention of fluctuations; Y92.009 Unspecified place in unspecified non-institutional (private) residence as the place of occurrence of the external cause; Z79.01 Long term (current) use of anticoagulants; Z79.51 Long term (current) use of inhaled steroids; Z79.899 Other long term (current) drug therapy
CPT/HCPCS: 71045; 73501; 73502; 80048; 81003; 85025; 85610; 85730; 86850; 86900; 86901; 93005; 94640; 96361; 96374; 96376; 99285